=== PATIENT | female | born 2000 | race Caucasian/White ===

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

== ENCOUNTER 2025-08-25 04:09 | Emergency (ER) | payer BC, SELFPAY ==
--- NOTE | 2025-08-25 04:24 | ED_ITS ---
Discharge Plan Disposition Patient Disposition: Home, Self-Care Prescriptions Prescriptions: New sulfamethoxazole-trimethoprim 800-160 mg tablet 1 tab PO BID 7 Days Qty: 14 0RF No Action fluoxetine 40 MG capsule 40 mg PO DAILY bupropion HCl 150 MG tablet 150 mg PO DAILY hydroxyzine pamoate 50 MG capsule 50 mg PO HSP PRN (Reason: Insomnia) azithromycin 250 MG tablet 250 mg PO DIRECTED Qty: 6 0RF Rx Instructions: Take two (2) tablets on day #1, then one (1) tablet day #2 thru #5 Referrals Follow up/Referrals: Provider,Referral, MD [Primary Care Provider, Medical] - See instructions Activity Restrictions/Add. Instructions Additional Instructions/Restrictions: Please follow-up with your primary care provider. Please return to the emergency department if you develop any new or worsening symptoms or become concerned for your health. Clinical Impressions Clinical Impression: UTI (urinary tract infection) Instructions Patient Instructions: DI for Acute Abdominal Pain Print Language Print Language: Fijian Discharge ED Provider: Myron Miller General Adult HPI General Chief complaint: Abdominal Pain Stated complaint: Radiating Lower Lumbar Pain; Possible Kidney Stone Time Seen by Provider: 08/25/25 04:10 History of Present Illness HPI narrative: 25-year-old female without significant past medical history presents for low back pain. She was seen at urgent care and diagnosed with a possible urinary tract infection. She was given Macrobid. She reports that she has been having worsening low back pain all the way across the low back since that time. She has also had some nausea. Related Data Home Medications ?Medication ?Instructions ?Recorded ?Confirmed bupropion HCl 150 mg tablet,12 hr 150 mg PO DAILY Depr ession 12/29/19 12/29/19 sustained-release fluoxetine 40 mg capsule 40 mg PO DAILY Depression 12/29/19 hydroxyzine pamoate 50 mg capsule 50 mg PO HSP PRN Ins omnia 12/29/19 12/29/19 Previous Rx's ?Medication ?Instructions ?Recorded azithromycin 250 mg tablet 250 mg PO DIRECTED #6 ta bs 12/29/19 sulfamethoxazole 800 1 tab PO BID 7 days #14 tabs 08/25/25 mg-trimethoprim 160 mg tablet Allergies Allergy/AdvReac Type Severity Reaction Status Date / Time No Known Allergies Allergy Verified 12/29/19 13:12 [facility] Disclaimer: The information contained in this section may have been updated after the patient was seen, as this information can be updated by other users. Social History Smoking Status: Never smoker alcohol intake: never current occupational status: other Travel in the last 8 weeks?: None Have you lived/traveled outside [place] in past 30 days?: No Contact w/someone who lives/traveled outside [place] past 30 days?: No Exposure to someone with infectious disease in past 14 days?: No Do you have a fever (greater than 100.4 F or 38 C)?: No Have you tested positive for COVID-19?: No Exposed to someone with COVID-19 in past 14 days?: No Do you have a sore throat?: No Do you have a cough?: No Do you have any weakness?: No Do you have any diarrhea?: No Are you experiencing any unusual bleeding?: No Do you have any muscle aches/pain?: No Do you have any abdominal pain?: No Are you experiencing loss of taste or smell?: No ROS Obtained: Yes All systems reviewed & no additional complaints except as documented Physical Exam General General appearance: alert and in no apparent distress Head Head exam: atraumatic and normocephalic Eye Eye exam: Present normal appearance, PERRL and EOMI ENT ENT exam: Present normal oropharynx and normal external ear exam Neck Neck exam: Present normal inspection and full ROM Chest Chest inspection: Present normal inspection and symmetric chest wall rise; Absent tenderness Respiratory Respiratory exam: Present normal lung sounds bilaterally; Absent respiratory distress Cardiovascular Cardiovascular exam: Present regular rate and normal rhythm Abdominal Exam Abdominal exam: Present soft; Absent distention, tenderness or guarding Extremities Exam Extremities exam: Present normal inspection; Absent edema or joint swelling Back Exam Back exam: Present normal inspection; Absent tenderness Neurological Exam Neurological exam: Present alert and oriented X3; Absent motor sensory deficit Psychiatric Psychiatric exam: Present normal affect and normal mood Skin Skin exam: Present warm, dry and normal color Lymphatic Lymphatic Findings: no adenopathy Medical Decision Making Medical Records Medical records reviewed: Yes I reviewed the patient's medical records. Screening: Per USPSTF and CDC recommendations, given the prevalence of disease in our region, it is our hospital?s policy to screen for HIV and viral Hepatitis for all patients aged 18 and over and those with ongoing risk factors. Arnold Inquiry Pt receiving controlled substance: No Arnold was queried for this patient: No Vital Signs: 08/25/25 04:26 08/25/25 05:00 08/25/25 05:31 Temperature 99.4 F Temperature Source Oral Pulse Rate 97 H 93 H Pulse Rate [Radial] 114 H Respiratory Rate 26 H Blood Pressure 116/80 119/80 Blood Pressure [Left Arm] 141/86 H Blood Pressure Mean [Left Arm] 104 Blood Pressure Position Blood Pressure Position [Left Arm] Sitting 02 Sat by Pulse Oximetry 97 96 97 Oxygen Delivery Method Room Air 08/25/25 05:48 Temperature 99.4 F Temperature Source Oral Pulse Rate 93 H Pulse Rate [Radial] Respiratory Rate 16 Blood Pressure 119/80 Blood Pressure [Left Arm] Blood Pressure Mean [Left Arm] Blood Pressure Position Sitting Blood Pressure Position [Left Arm] 02 Sat by Pulse Oximetry Oxygen Delivery Method Room Air Lab Data Lab results reviewed: Yes I reviewed the patient's lab results. Lab Results 08/25/25 04:25: WBC 13.7 H, RBC 4.51, Hgb 13.8, Hct 39.2, MCV 86.9, MCH 30.6, MCHC 35.2, RDW 13.2, Plt Count 295, MPV 9.3, Neut % (Auto) 64.4, Lymph % (Auto) 26.9, [place] % (Auto) 5.5, Eos % (Auto) 2.5, Baso % (Auto) 0.4, Neut # (Auto) 8.8 H, Lymph # (Auto) 3.7, [place] # (Auto) 0.8, Eos # (Auto) 0.4, Baso # (Auto) 0.1, Sodium 137, Potassium 3.6, Chloride 103, Carbon Dioxide 26, Anion Gap 11.6, BUN 9, Creatinine 0.70, Estimated Creat Clear 215, Estimated GFR 104, Est GFR ( Amer) 125, Glucose 97, Calcium 9.2, Total Bilirubin 0.3, AST 34, ALT 40, Alkaline Phosphatase 71, Total Protein 7.8, Albumin 4.3, Globulin 3.5 H, Albumin/Globulin Ratio 1.2, Lipase 112, Serum HCG, Qual Negative, HCV Ab REY w/Rflx PCR Qn Negative, HIV Ag/Ab Combo Qual Negative 08/25/25 04:32: Urine Color Yellow, Urine Appearance Clear, Urine pH 6.5, Ur Specific [place] <= 1.005, Urine Protein Negative, Urine Glucose (UA) Negative, Urine Ketones Negative, Urine Blood 2+ A, Urine Nitrate Negative, Urine Bilirubin Negative, Urine Urobilinogen 0.2, Ur Leukocyte Esterase Trace, Urine RBC 5-10, Urine WBC 5-10, Ur Squamous Epith Cells Occasional, Urine Bacteria Trace 08/25/25 04:25 08/25/25 04:25 Orders (Tests/Meds): ED MEDICATIONS Discontinued Medications Generic Name Dose Route Start Last Admin Trade Name Zeenat PRN Reason Stop Dose Admin Acetaminophen 1,000 mg 08/25/25 04:25 08/25/25 04:37 Acetaminophen 500mg Tab PO 08/25/25 04:26 1,000 mg ONCE ONE Administration Iopamidol 75 ml 08/25/25 05:21 08/25/25 05:22 Iopamidol-370 (76%);100ml Bottle IV 08/25/25 05:22 75 ml ONCE ONE Administration Morphine Sulfate 4 mg 08/25/25 04:25 08/25/25 04:37 Morphine 4mg/Ml Syringe IV 08/25/25 04:26 4 mg ONCE ONE Administration Ondansetron HCl 4 mg 08/25/25 04:25 08/25/25 04:37 Ondansetron 4mg/2ml Vial IV 08/25/25 04:26 4 mg ONCE ONE Administration Sodium Chloride 10 ml 08/25/25 05:21 08/25/25 05:21 Sodium Chloride 0.9% 10ml Syr (Rad Only) IV 08/25/25 05:22 10 ml ONCE ONE Administration Trimethoprim/Sulfamethoxazole 1 each 08/25/25 05:37 08/25/25 05:41 Sulfa/Trimethoprim 1 Tablet PO 08/25/25 05:38 1 each ONCE ONE Administration ORDERS Category Date Time Status CT abdomen pelvis w con Stat Cat Scan 08/25/25 04:25 Completed CBC w/Auto Diff [Complete Blood Count Auto Diff] Stat Lab 08/25/25 04:25 Completed CMP [Comprehensive Metabolic Panel] Stat Lab 08/25/25 04:25 Completed HCG Qualitative, Serum Stat Lab 08/25/25 04:25 Completed HIV Combo Stat Lab 08/25/25 04:25 Received Hepatitis C Ab Qual. W/ RFX Stat Lab 08/25/25 04:25 Received Lipase Stat Lab 08/25/25 04:25 Completed UA [Urinalysis and Microscopic] Stat Lab 08/25/25 04:32 Completed Urine Chlam/Gono/Trich ([facility]) Stat Lab 08/25/25 04:32 Received Medical Decision Narrative: 25-year-old female without significant past medical history, recently diagnosed with possible UTI, presents for worsening low back pain.. History was obtained via interactive discussion with patient, family, chart review. On arrival, patient is [afebrile, hemodynamically stable, satting appropriately, alert, oriented x4, GCS 15], moving all extremities spontaneously. Full physical exam performed and significant for no significant flank tenderness. Differential includes but is not limited to pyelonephritis, kidney stone, UTI, musculoskeletal pain. Patient was given morphine and Zofran Tylenol for symptomatic management and correction of underlying abnormalities. Workup initiated including CBC CMP UA CT abdomen pelvis with IV contrast hCG, gonorrhea chlamydia. On re-evaluation, patient symptomatically improved. Laboratory workup independently interpreted by me and significant for mild leukocytosis, 5-10 RBCs, 5-10 WBCs, trace bacteria consistent with UTI.. Imaging independently interpreted by me and significant for no significant intra-abdominal abnormality, specifically no kidney stone. See radiology read for full review of final results. Given patient history, exam and workup, patient's presentation most likely represents urinary tract infection, possible developing pyelo-. She was initiated on Bactrim and discharged in stable condition. Return precautions given.. Procedures Risk/Benefits of Procedure(s) Were Explained: Yes Critical Care Critical Care Time Critical Care Time: No
--- NOTE | 2025-08-25 04:25 | CT_ITS ---
PROCEDURE INFORMATION: Exam: CT Abdomen And Pelvis With Contrast Exam date and time: 08/25/2025 5:15 AM Age: 25 years old Clinical indication: Nausea; Abdominal pain; Additional info: Low back pain, nausea TECHNIQUE: Imaging protocol: Computed tomography of the abdomen and pelvis with contrast. Radiation optimization: All CT scans at this facility use at least one of these dose optimization techniques: automated exposure control; mA and/or kV adjustment per patient size (includes targeted exams where dose is matched to clinical indication); or iterative reconstruction. Contrast material: ISOVUE; Contrast volume: 75 ml; Contrast route: IV; COMPARISON: No relevant prior studies available. FINDINGS: Liver: Normal. No mass. Gallbladder and biliary ducts: Normal. No calcified stones. No ductal dilation. Pancreas: Normal. No ductal dilation. Spleen: Normal. No splenomegaly. Adrenal glands: Normal. No mass. Kidneys and ureters: Normal. No hydronephrosis. Stomach and bowel: Unremarkable. No obstruction. No mucosal thickening. Appendix: No evidence of appendicitis. Intraperitoneal space: Unremarkable. No free air. No significant fluid collection. Vasculature: Unremarkable. No abdominal aortic aneurysm. Lymph nodes: Unremarkable. No enlarged lymph nodes. Urinary bladder: Unremarkable as visualized. Reproductive: Unremarkable as visualized. Bones/joints: Unremarkable. No acute fracture. Soft tissues: Unremarkable. IMPRESSION: No acute findings.
[2025-08-25 04:26] VITALS: BP 141/86; PULSE 114; RESP 26; TEMP 37.4; O2SAT 97; BMI 41.1
[2025-08-25] MEDS: ONDANSETRON 4MG/2ML VIAL 4 MG IV (04:37)
[2025-08-25] MEDS: MORPHINE 4MG/ML SYRINGE 4 MG IV (04:37)
[2025-08-25] MEDS: ACETAMINOPHEN 500MG TAB 1000 MG PO (04:37)
[2025-08-25 04:38] LABS: Microscopic, Urine URINE MICROSCOPIC (MICROSCOPIC)
[2025-08-25 04:42] LABS: Hematocrit 39.2 % (37.0-47.0); Hemoglobin 13.8 g/dL (12.2-16.2); Immature Granulocytes % 0.3 %; Mean Corpuscular HGB Conc 35.2 g/dL (31.8-35.4); Mean Corpuscular Hemoglobin 30.6 pg (27.0-31.2); Mean Corpuscular Volume 86.9 fl (81-99); Nucleated Red Blood Cells % 0 %; Platelet Count 295 K/mm3 (142-424); Red Blood Count 4.51 M/mm3 (4.20-5.40); Red Cell Distribution Width-SD 41.4 fL; White Blood Count 13.7 K/mm3 (4.8-10.8)
[2025-08-25 04:43] LABS: Bilirubin,Urine Negative (Negative); Color,Urine YELLOW (Yellow); Glucose,Urine (UA) Negative (Negative); Ketones,Urine Negative (Negative); Leukocyte Esterase,Urine TRACE (Negative); PH,Urine 6.5 (5.0-8.5); Protein,Urine Negative (Negative); Specific Gravity, Urine <= 1.005 (1.005-1.030); Urobilinogen,Urine 0.2 EU/dl (0.2)
[2025-08-25 04:49] LABS: Albumin Level 4.3 g/dl (3.5-5.0); Chloride 103 mmol/L (98-107)
[2025-08-25 04:50] LABS: Potassium 3.6 mmoL/L (3.5-5.1); Sodium 137 mmol/L (136-145)
[2025-08-25 04:52] LABS: Alanine Aminotransferase 40 U/L (12-78); Alkaline Phosphatase 71 U/L (38-126); Anion Gap 11.6 mEq/L (5-15); Aspartate Amino Transferase 34 U/L (14-36); Bilirubin,Total 0.3 mg/dl (0.2-1.3); Blood Urea Nitrogen 9 mg/dl (7-17); Carbon Dioxide 26 mmol/L (22.0-30.0); Creatinine Clearance Estimated 215 mL/min (50-200); Creatinine,Serum 0.70 mg/dl (0.52-1.04); Estimated Glomerular Filt Rate 104 ml/min (>60); GFR (African American) 125 ML/MIN (>60); Lipase 112 U/L (23-300)
[2025-08-25 04:53] LABS: Albumin/Globulin Ratio 1.2 (1.1-1.8); Calcium 9.2 mg/dl (8.4-10.2); Globulin 3.5 g/dL (1.3-3.2); Glucose 97 mg/dl (74-100); Total Protein,Serum 7.8 g/dl (6.3-8.2)
[2025-08-25 04:59] LABS: HCG Qualitative, Serum Negative (Negative)
[2025-08-25 05:00] VITALS: BP 116/80; PULSE 97; O2SAT 96
[2025-08-25 05:02] LABS: Bacteria,Urine Trace /lpf; Squamous Epithelial Cell,Urine Occasional #/hpf (0-5)
[2025-08-25] MEDS: SODIUM CHLORIDE 0.9% 10ML SYR (RAD ONLY) 10 ML IV (05:21)
[2025-08-25] MEDS: IOPAMIDOL-370 (76%);100ML BOTTLE 75 ML IV (05:22)
[2025-08-25 05:31] VITALS: BP 119/80; PULSE 93; O2SAT 97
[2025-08-25 05:41] LABS: Hepatitis C Ab Qual. W/ RFX NEGATIVE (Negative)
[2025-08-25] MEDS: SULFA/TRIMETHOPRIM 1 TABLET 1 EACH PO (05:41)
[2025-08-25 05:48] VITALS: BP 119/80; PULSE 93; RESP 16; TEMP 37.4; O2SAT 97
== END 2025-08-25 05:50 | disposition home or self-care (01) ==
PROVIDERS: Emergency Provider Emergency Medicine
DX: N39.0 Urinary tract infection, site not specified (principal); R11.0 Nausea; M54.59 Other low back pain
CPT/HCPCS: 74177; 80053; 81001; 83690; 84703; 85025; 86803; 87389; 87491; 87591; 87661; 96374; 96375; 99285; J2270; J2405; Q9967